=== PATIENT | male | born 1965 | race Caucasian/White ===

== ENCOUNTER 2022-03-11 12:35 | Emergency (ER) | payer MEDICAID ==
--- NOTE | 2022-03-11 15:31 | NUR ---
2002 not in lobby [id number]
== END 2022-03-11 15:43 | disposition left against medical advice (07) ==
LOC: ER 12:36
DX: N50.819 Testicular pain, unspecified (principal); Z53.21 Procedure and treatment not carried out due to patient leaving prior to being seen by health care provider

== ENCOUNTER 2022-03-12 04:51 | Emergency (ER) | payer MEDICAID ==
[~2022-03-12] VITALS: Ht 182.9 cm; Wt 81.8 kg
[2022-03-12 04:55] VITALS: BP 159/106
== END 2022-03-12 07:33 | disposition left against medical advice (07) ==
LOC: ER 04:51
DX: N50.819 Testicular pain, unspecified (principal); Z53.21 Procedure and treatment not carried out due to patient leaving prior to being seen by health care provider

== ENCOUNTER 2023-07-13 16:54 | Emergency (ER) | payer MEDICAID | END 2023-07-13 21:18 | disposition left against medical advice (07) | LOC: ER 16:55 | DX: M54.30 Sciatica, unspecified side (principal); Z53.21 Procedure and treatment not carried out due to patient leaving prior to being seen by health care provider ==